=== PATIENT | female | born 1995 | race Caucasian/White ===

== ENCOUNTER 2017-05-01 13:35 | Emergency (ER) | payer OTHER ==
--- NOTE | 2017-05-01 13:40 | PDOC ---
History of Present Illness - History of Present Illness Initial Comments: 05/01/17 14:35 22 yo female who presents with lower abdominal pain. Pt. complains of vague, bloating, lower abdominal discomfort for two weeks duration. Discomfort is more severe in the morning and dissipates through the day. +SOB attributed to recent PPI use. Denies changes in bowel habits, appetite changes, N/V, fevers/chills, diarrhea/constipation, blood in stool, hematuria, dysuria, increased urinary frequency or hesitancy, flank pain, back pain, or chest pain. She is G0PO with LMP 04/07/2017. Denies h/o sexual activity. - General Chief Complaint: Pain Stated Complaint: ABD PAIN Time Seen by Provider: 05/01/17 13:39 Past History - Past Medical History Allergies/Adverse Reactions: Allergies Allergy/AdvReac Type Severity Reaction Status Date / Time No Known Allergies Allergy Verified 05/01/17 13:36 Home Medications: Ambulatory Orders NK [No Known Home Medication] 05/01/17 Review of Systems - Review of Systems Comments:: 05/01/17 14:43 GENERAL/CONSTITUTIONAL: No fever or chills. No weakness. HEAD, EYES, EARS, NOSE AND THROAT: No change in vision. No ear pain or discharge. No sore throat. CARDIOVASCULAR: No chest pain or shortness of breath RESPIRATORY: No cough, wheezing, or hemoptysis. GASTROINTESTINAL: + lower abdominal discomfort and bloating. No nausea, vomiting , diarrhea or constipation. GENITOURINARY: No dysuria, frequency, or change in urination. MUSCULOSKELETAL: No joint or muscle swelling or pain. No neck or back pain. SKIN: No rash NEUROLOGIC: No headache, vertigo, loss of consciousness, or change in strength/ sensation. ENDOCRINE: No increased thirst. No abnormal weight change HEMATOLOGIC/LYMPHATIC: No anemia, easy bleeding, or history of blood clots. ALLERGIC/IMMUNOLOGIC: No hives or skin allergy. *Physical Exam - Vital Signs Last Vital Signs Temp Pulse Resp BP Pulse Ox 98.3 F 98 H 20 127/81 100 05/01/17 13:35 05/01/17 13:35 05/01/17 13:35 05/01/17 13:35 05/01/17 13:35 - Physical Exam Comments: 05/01/17 14:44 GENERAL: Awake, alert, and fully oriented, in no acute distress HEAD: No signs of trauma, normocephalic, atraumatic EYES: PERRLA, EOMI, sclera anicteric, conjunctiva clear ENT: Auricles normal inspection, hearing grossly normal, nares patent, oropharynx clear without exudates. Moist mucosa NECK: Normal ROM, supple, no lymphadenopathy, JVD, or masses LUNGS: No distress, speaks full sentences, clear to auscultation bilaterally HEART: Regular rate and rhythm, normal S1 and S2, no murmurs, rubs or gallops, peripheral pulses normal and equal bilaterally. ABDOMEN: Mild suprapubic discomfort with palpation. Normoactive bowel sounds. Absent hepatosplenomegaly. Absent Davis sign. No guarding, no rebound. No masses, or pulsatile masses. Absent abdominal buldging with valsalva. EXTREMITIES: Normal inspection, Normal range of motion, no edema. No clubbing or cyanosis. NEUROLOGICAL: Cranial nerves II through XII grossly intact. Normal speech, normal gait, no focal sensorimotor deficits SKIN: Warm, Dry, normal turgor, no rashes or lesions noted. Medical Decision Making - Medical Decision Making 05/01/17 15:09 22 yo female with no significant past medical history presents with diffuse lower abdominal discomfort and bloating. Patient is stable and has no associated symptoms. She has been experiencing stable lower abdominal discomfort the past two weeks. There is low suspicion for appendicitis, due to absent Mcburney point tenderness, fever, or character of abdominal pain. Unlikely that this patient has a small bowel obx.d/t NBS, absent guarding or rebound tenderness, N/V, or constipation. Not concerned with diverticulitis due to absent psoas sign, absent LLQ pain on palpation, fevers, or other related GI symptoms. Patient does not have severe disproportionate to exam abdominal pain in lower quadrant making mesenteric ischemia and ovarian torsion unlikely. Normal menstrual history, and report of sexual inactivity makes and ectopic unlikely, but would recommend B-HCG to definitely rule out possibility. PID unlikely d/t abstinent sexual activity. Pt. most likely experiencing prementrsaul dysphoric disorder. There is a low-moderate suspicion of acute cystitis. Patient denies urinary complaints of urinary frequency, hesitancy, dysuria, but does endorse mild suprapubic discomfort. ED course: - B-HCG - UA
[2017-05-01 13:50] VITALS: BP 127/81; PULSE 98; TEMP 98.3; BMI 17.5
[2017-05-01 14:58] LABS: URINE APPEARANCE Clear; URINE BILIRUBIN Negative (NEGATIVE); URINE BLOOD Negative (NEGATIVE); URINE GLUCOSE (UA) Negative (NEGATIVE); URINE KETONE Negative (NEGATIVE); URINE LEUK ESTERASE Negative (NEGATIVE); URINE NITRITE Negative (NEGATIVE); URINE PROTEIN Negative (NEGATIVE); URINE UROBILINOGEN 0.2 E.U/dl (0.2-1.0)
[2017-05-01 15:00] LABS: URINE COLOR YELLOW
--- NOTE | 2017-05-01 15:27 | PDOC ---
History of Present Illness - General Chief Complaint: Pain Stated Complaint: ABD PAIN Time Seen by Provider: 05/01/17 13:39 Past History - Past Medical History Allergies/Adverse Reactions: Allergies Allergy/AdvReac Type Severity Reaction Status Date / Time No Known Allergies Allergy Verified 05/01/17 13:36 Home Medications: Ambulatory Orders NK [No Known Home Medication] 05/01/17 Other medical history: DENIES - Immunization History Immunization Up to Date: Yes - Psycho/Social/Smoking Cessation Hx Anxiety: No Suicidal Ideation: No Smoking History: Never smoked Have you smoked in the past 12 months: No Information on smoking cessation initiated: No Hx Alcohol Use: No Drug/Substance Use Hx: No Substance Use Type: None *Physical Exam - Vital Signs Last Vital Signs Temp Pulse Resp BP Pulse Ox 98.3 F 98 H 20 127/81 100 05/01/17 13:35 05/01/17 13:35 05/01/17 13:35 05/01/17 13:35 05/01/17 13:35 ED Treatment Course - ADDITIONAL ORDERS Additional order review: Laboratory Results 05/01/17 14:48 Urine Color Yellow Urine Appearance Clear Urine pH 6.0 Ur Specific [place] 1.010 Urine Protein Negative Urine Glucose (UA) Negative Urine Ketones Negative Urine Blood Negative Urine Nitrite Negative Urine Bilirubin Negative Urine Urobilinogen 0.2 e.u/dl Ur Leukocyte Esterase Negative
--- NOTE | 2017-05-01 15:28 | PDOC ---
History of Present Illness - General Chief Complaint: Pain Stated Complaint: ABD PAIN Time Seen by Provider: 05/01/17 13:39 - History of Present Illness Initial Comments: 05/01/17 15:28 History of Present Illness Initial Comments: 05/01/17 14:35 22 yo female who presents with lower abdominal pain. Pt. complains of vague, bloating, lower abdominal discomfort for two weeks duration. Discomfort is more severe in the morning and dissipates through the day. +SOB attributed to recent PPI use. Denies changes in bowel habits, appetite changes, N/V, fevers/chills, diarrhea/constipation, blood in stool, hematuria, dysuria, increased urinary frequency or hesitancy, flank pain, back pain, or chest pain. She is G0PO with LMP 04/07/2017. Denies h/o sexual activity. Past History - Past Medical History Allergies/Adverse Reactions: Allergies Allergy/AdvReac Type Severity Reaction Status Date / Time No Known Allergies Allergy Verified 05/01/17 13:36 Home Medications: Ambulatory Orders NK [No Known Home Medication] 05/01/17 Other medical history: DENIES - Immunization History Immunization Up to Date: Yes - Psycho/Social/Smoking Cessation Hx Anxiety: No Suicidal Ideation: No Smoking History: Never smoked Have you smoked in the past 12 months: No Information on smoking cessation initiated: No Hx Alcohol Use: No Drug/Substance Use Hx: No Substance Use Type: None Review of Systems - Review of Systems Comments:: 05/01/17 14:43 GENERAL/CONSTITUTIONAL: No fever or chills. No weakness. HEAD, EYES, EARS, NOSE AND THROAT: No change in vision. No ear pain or discharge. No sore throat. CARDIOVASCULAR: No chest pain or shortness of breath RESPIRATORY: No cough, wheezing, or hemoptysis. GASTROINTESTINAL: + lower abdominal discomfort and bloating. No nausea, vomiting , diarrhea or constipation. GENITOURINARY: No dysuria, frequency, or change in urination. MUSCULOSKELETAL: No joint or muscle swelling or pain. No neck or back pain. SKIN: No rash NEUROLOGIC: No headache, vertigo, loss of consciousness, or change in strength/ sensation. ENDOCRINE: No increased thirst. No abnormal weight change HEMATOLOGIC/LYMPHATIC: No anemia, easy bleeding, or history of blood clots. ALLERGIC/IMMUNOLOGIC: No hives or skin allergy. *Physical Exam - Vital Signs Last Vital Signs Temp Pulse Resp BP Pulse Ox 98.3 F 98 H 20 127/81 100 05/01/17 13:35 05/01/17 13:35 05/01/17 13:35 05/01/17 13:35 05/01/17 13:35 - Physical Exam Comments: 05/01/17 14:4 GENERAL: Awake, alert, and fully oriented, in no acute distress HEAD: No signs of trauma, normocephalic, atraumatic EYES: PERRLA, EOMI, sclera anicteric, conjunctiva clear ENT: Auricles normal inspection, hearing grossly normal, nares patent, oropharynx clear without exudates. Moist mucosa NECK: Normal ROM, supple, no lymphadenopathy, JVD, or masses LUNGS: No distress, speaks full sentences, clear to auscultation bilaterally HEART: Regular rate and rhythm, normal S1 and S2, no murmurs, rubs or gallops, peripheral pulses normal and equal bilaterally. ABDOMEN: Mild suprapubic discomfort with palpation. Normoactive bowel sounds. Absent hepatosplenomegaly. Absent Davis sign. No guarding, no rebound. No masses, or pulsatile masses. Absent abdominal buldging with valsalva. EXTREMITIES: Normal inspection, Normal range of motion, no edema. No clubbing or cyanosis. NEUROLOGICAL: Cranial nerves II through XII grossly intact. Normal speech, normal gait, no focal sensorimotor deficits SKIN: Warm, Dry, normal turgor, no rashes or lesions noted. ED Treatment Course - ADDITIONAL ORDERS Additional order review: Laboratory Results 05/01/17 14:48 Urine Color Yellow Urine Appearance Clear Urine pH 6.0 Ur Specific [place] 1.010 Urine Protein Negative Urine Glucose (UA) Negative Urine Ketones Negative Urine Blood Negative Urine Nitrite Negative Urine Bilirubin Negative Urine Urobilinogen 0.2 e.u/dl Ur Leukocyte Esterase Negative Medical Decision Making - Medical Decision Making 05/01/17 15:09 22 yo female with no significant past medical history presents with diffuse lower abdominal discomfort and bloating. Patient is stable and has no associated symptoms. She has been experiencing stable lower abdominal discomfort the past two weeks. There is low suspicion for appendicitis, due to absent Mcburney point tenderness, fever, or character of abdominal pain. Unlikely that this patient has a small bowel obx.d/t NBS, absent guarding or rebound tenderness, N/V, or constipation. Not concerned with diverticulitis due to absent psoas sign, absent LLQ pain on palpation, fevers, or other related GI symptoms. Patient does not have severe disproportionate to exam abdominal pain in lower quadrant making mesenteric ischemia and ovarian torsion unlikely. Normal menstrual history, and report of sexual inactivity makes and ectopic unlikely, but would recommend B-HCG to definitely rule out possibility. PID unlikely d/t abstinent sexual activity. Pt. most likely experiencing prementrsaul dysphoric disorder. There is a low-moderate suspicion of acute cystitis. Patient denies urinary complaints of urinary frequency, hesitancy, dysuria, but does endorse mild suprapubic discomfort. ED course: - B-HCG - UA 05/01/17 16:00 UA unremarkable with absent signs of infection. Negative nitrites and WBC Negative B-HCG *DC/Admit/Observation/Transfer Diagnosis at time of Disposition: Unspecified abdominal pain - Discharge Dispostion Disposition: HOME Condition at time of disposition: Stable Admit: No - Patient Instructions Additional Instructions: Consider over the counter proton pump inhibitor such as Nexium. Conisder probiotic use and increase fiber intake with dietary modifications. Increase fruit/vegetable intake and over the counter Metamucil. - Attestations Physician Attestion: 05/01/17 16:01 I, Dr. Jakob Prasad, attest that this document has been prepared under my direction and personally reviewed by me in its entirety. I further attest, that it accurately reflects all work, treatment, procedures and medical decision -making performed by me.
== END 2017-05-01 16:17 | disposition home or self-care (01) ==
LOC: FER 13:35
DX: R10.9 Unspecified abdominal pain (principal)
CPT/HCPCS: 81003; 84703; 99282-25

== ENCOUNTER 2017-07-19 10:48 | Day surgery (SDC) | payer OTHER ==
[2017-07-14 13:09] VITALS: BMI 17.5
[2017-07-19 11:03] VITALS: TEMP 98.3
[2017-07-19 12:38] VITALS: BP 93/54; PULSE 64
--- NOTE | 2017-07-20 11:47 | PATH ---
Surgical Pathology Report Patient Name: IRMA GARCIA [facility]. Rec. #: [id number] /Age/Gender: 1995 (Age: 22) / F Account: [id number] Location: [facility]-ENDOSCOPY Taken: 07/19/2017 Received: 07/19/2017 Reported: 07/20/2017 Physicians: Cesar Brown M.D. Specimen(s) Received A: BX DUODENUM B: BX ANTRUM C: BX ESOPHAGUS Clinical History GERD Rule out celiac disease, abdominal pain, rule out eosinophilic esophagitis, mild gastritis Final Diagnosis A. DUODENUM, BIOPSY: DUODENAL MUCOSA WITH NO PATHOLOGIC CHANGES. NO HISTOLOGIC EVIDENCE OF GLUTEN SENSITIVE ENTEROPATHY (CELIAC SPRUE) IDENTIFIED. B. STOMACH, ANTRUM, BIOPSY: GASTRIC ANTRUM MUCOSA WITH NO PATHOLOGIC CHANGES. IMMUNOSTAIN FOR H. PYLORI IS NEGATIVE. C. ESOPHAGUS, BIOPSY: SQUAMOUS EPITHELIUM WITH NO PATHOLOGIC CHANGES. NO INTESTINAL METAPLASIA IDENTIFIED (NO QUINTANA'S IDENTIFIED). NO EOSINOPHILIC ESOPHAGITIS IDENTIFIED. Electronically Signed Rohit Monet M.D. Gross Description A. Received in formalin, labeled "duodenum" are two fragments of [place] tissue 0.4 cm. in greatest dimension. The specimens are submitted in toto in one cassette. B. Received in formalin, labeled "antrum" are two fragments of [place] tissue 0.3 cm. in greatest dimension. The specimens are submitted in toto in one cassette. C. Received in formalin, labeled "esophagus" is a one fragment of a waldron-white tissue measuring 0.4 cm. in greatest dimension. The specimen is submitted in toto in one cassette. AF/07/19/2017 final/07/19/2017
== END 2017-07-19 12:40 | disposition home or self-care (01) ==
LOC: FASU-ENDO 10:48
PROVIDERS: ATTEND Internal Medicine Gastroenterology
PROC: 0DB58ZX Excision of Esophagus, Via Natural or Artificial Opening Endoscopic, Diagnostic (ICD-10-PCS; 2017-07-19)
PROC: 0DB98ZX Excision of Duodenum, Via Natural or Artificial Opening Endoscopic, Diagnostic (ICD-10-PCS; principal; 2017-07-19 11:54)
PROC: 0DB68ZX Excision of Stomach, Via Natural or Artificial Opening Endoscopic, Diagnostic (ICD-10-PCS; 2017-07-19 11:54)
DX: K31.89 Other diseases of stomach and duodenum (principal); R12 Heartburn
CPT/HCPCS: 84703; 88305-TC; 88342-TC